=== PATIENT | female | born 1955 | race Caucasian/White ===

== ENCOUNTER → 2016-04-13 | Outpatient (CLI) | payer MEDICARE ==
[2016-04-13 14:16] LABS: ALANINE AMINOTRANSFERASE 25 U/L (9-52); ALKALINE PHOSPHATASE 86 U/L (38-126); ASPARTATE AMINO TRANSFERASE 22 U/L (14-36); BILIRUBIN,TOTAL 0.6 mg/dL (0.2-1.3); CHOLESTEROL 278.84 mg/dL (0-200); Direct HDL 69 mg/dL (>40); TOTAL PROTEIN 6.4 g/dL (6.3-8.2); TRIGLYCERIDES 110 mg/dL (<150)
[2016-04-13 14:27] LABS: DIRECT LDL 174 mg/dL (<100)
[2016-04-14 08:17] LABS: APPEARANCE,URINE CLEAR; BILIRUBIN,URINE NEGATIVE (NEGATIVE); GLUCOSE, URINE NEGATIVE (NEGATIVE); KETONES,URINE NEGATIVE (NEGATIVE); LEUKOCYTE ESTERASE,URINE MODERATE (NEGATIVE); NITRITE,URINE NEGATIVE (NEGATIVE); PROTEIN,URINE NEGATIVE (NEGATIVE); URINE SPECIFIC GRAVITY 1.017; UROBILINOGEN,URINE NEGATIVE mg/dL (<2.0)
== END ==
LOC: OD 12:35
DX: K76.89 Other specified diseases of liver (principal); Z79.899 Other long term (current) drug therapy
CPT/HCPCS: 36415; 80061; 80076; 81001; 83036

== ENCOUNTER → 2016-05-11 | Outpatient (CLI) | payer MEDICARE | LOC: OD 08:19 | DX: R06.02 Shortness of breath (principal) | CPT/HCPCS: 71020 ==

== ENCOUNTER → 2016-05-11 | Outpatient (CLI) | payer MEDICARE ==
[2016-05-11 09:26] LABS: ABSOLUTE EOSINOPHILS # (AUTO) 0.5 10^3/uL (0.0-0.6); ABSOLUTE LYMPHOCYTES (AUTO) 2.7 10^3/uL (0.5-4.7); ABSOLUTE MONOCYTES (AUTO) 0.7 10^3/uL (0.1-1.4); BASOPHILS % (AUTO) 0.7 % (0-2); EOSINOPHILS % (AUTO) 7.8 % (0-6); HEMATOCRIT 35.4 % (36.0-47.0); HEMOGLOBIN 11.9 g/dL (12.0-15.5); HGB HCT DIFFERENCE 0.3; LYMPHOCYTES % (AUTO) 38.4 % (13-45); MEAN CORPUSCULAR HEMOGLOBIN 30.5 pg (27.0-33.4); MEAN CORPUSCULAR HGB CONC 33.6 g/dL (32.0-36.0); MEAN CORPUSCULAR VOLUME 91 fl (80-97); RED BLOOD COUNT 3.91 10^6/uL (3.72-5.28); RED CELL DISTRIBUTION WIDTH 14.4 % (11.5-14.0); SEGMENTED NEUTROPHILS % (AUTO) 43.1 % (42-78)
[2016-05-11 09:29] LABS: PROTHROMBIN TIME 12.7 SEC (11.4-15.4)
[2016-05-11 09:30] LABS: PARTIAL THROMBOPLASTIN TIME 21.7 SEC (23.5-35.8)
== END ==
LOC: OD 07:42
DX: T14.8 Other injury of unspecified body region (principal); X58.XXXA Exposure to other specified factors, initial encounter; Y93.9 Activity, unspecified; Y92.9 Unspecified place or not applicable
CPT/HCPCS: 36415; 85025; 85610; 85730

== ENCOUNTER → 2016-08-06 | Outpatient (CLI) | payer MEDICARE, OTHER | LOC: RAD 09:59 | PROVIDERS: ATTEND Student in an Organized Health Care Education/Training Program | DX: M79.9 Soft tissue disorder, unspecified (principal) | CPT/HCPCS: 76882 ==

== ENCOUNTER → 2016-10-28 | Outpatient (CLI) | payer MEDICARE ==
[2016-10-28 10:40] LABS: ABSOLUTE BASOPHILS # (AUTO) 0.1 10^3/uL (0.0-0.2); ABSOLUTE EOSINOPHILS # (AUTO) 0.4 10^3/uL (0.0-0.6); ABSOLUTE MONOCYTES (AUTO) 0.6 10^3/uL (0.1-1.4); ABSOLUTE NEUT (AUTO) 2.5 10^3/uL (1.7-8.2); EOSINOPHILS % (AUTO) 6.5 % (0-6); HEMATOCRIT 34.3 % (36.0-47.0); HEMOGLOBIN 11.6 g/dL (12.0-15.5); HGB HCT DIFFERENCE 0.5; LYMPHOCYTES % (AUTO) 44.7 % (13-45); MEAN CORPUSCULAR HEMOGLOBIN 30.3 pg (27.0-33.4); MEAN CORPUSCULAR HGB CONC 33.9 g/dL (32.0-36.0); MEAN CORPUSCULAR VOLUME 89 fl (80-97); MONOCYTES % (AUTO) 9.4 % (3-13); RED BLOOD COUNT 3.84 10^6/uL (3.72-5.28); RED CELL DISTRIBUTION WIDTH 13.8 % (11.5-14.0); SEGMENTED NEUTROPHILS % (AUTO) 38.4 % (42-78); WHITE BLOOD COUNT 6.6 10^3/uL (4.0-10.5)
[2016-10-28 10:44] LABS: APPEARANCE,URINE SLIGHTLY-CLOUDY; BILIRUBIN,URINE NEGATIVE (NEGATIVE); GLUCOSE, URINE NEGATIVE (NEGATIVE); KETONES,URINE NEGATIVE (NEGATIVE); LEUKOCYTE ESTERASE,URINE LARGE (NEGATIVE); NITRITE,URINE NEGATIVE (NEGATIVE); PROTEIN,URINE NEGATIVE (NEGATIVE); URINE SPECIFIC GRAVITY 1.011; UROBILINOGEN,URINE NEGATIVE mg/dL (<2.0)
[2016-10-28 10:58] LABS: ANION GAP 8 (5-19); BLOOD UREA NITROGEN 14 mg/dL (7-20); CARBON DIOXIDE 28 mmol/L (22-30); CHLORIDE 101 mmol/L (98-107); CREATININE RESULT 0.75 mg/dL (0.52-1.25); GLUCOSE 84 mg/dL (75-110); POTASSIUM 4.8 mmol/L (3.6-5.0); SODIUM 137.2 mmol/L (137-145)
--- NOTE | 2016-10-28 11:00 | RADIOLOGY REPORT (SQ) ---
EXAM DESCRIPTION: CHEST PA/LATERAL COMPLETED DATE/TIME: 10/28/2016 10:28 am REASON FOR STUDY: PRE OP COMPARISON: 05/11/2016 EXAM PARAMETERS: NUMBER OF VIEWS: two views TECHNIQUE: Digital Frontal and Lateral radiographic views of the chest acquired. RADIATION DOSE: NA LIMITATIONS: none FINDINGS: LUNGS AND PLEURA: No opacities, masses or pneumothorax. No pleural effusion. MEDIASTINUM AND HILAR STRUCTURES: No masses or contour abnormalities. HEART AND VASCULAR STRUCTURES: Heart normal size. No evidence for failure. BONES: No acute findings. HARDWARE: None in the chest. OTHER: No other significant finding. IMPRESSION: NO SIGNIFICANT RADIOGRAPHIC FINDING IN THE CHEST. TECHNICAL DOCUMENTATION: JOB ID: [id number] [employer]- All Rights Reserved
--- NOTE | 2016-10-28 13:35 | EKG REPORT ---
SEVERITY:- NORMAL ECG - SINUS RHYTHM : Confirmed by: Gallo Tadeo MD 28-Oct-2016 13:34:32
== END ==
LOC: OD 09:20
PROVIDERS: ATTEND Orthopaedic Surgery
DX: Z01.810 Encounter for preprocedural cardiovascular examination (principal); Z01.812 Encounter for preprocedural laboratory examination; Z01.818 Encounter for other preprocedural examination
CPT/HCPCS: 36415; 71020; 80048; 81001; 85025; 93005; 93010

== ENCOUNTER 2016-11-18 13:56 | Emergency (ER) | payer MEDICARE ==
[2016-11-18 14:17] VITALS: BP 140/55
[2016-11-18] MEDS ORDERED: ONDANSETRON 4 MG TAB.RAPDIS PO ONE (14:48)
[2016-11-18] MEDS ORDERED: PENICILLIN V POTASSIUM 500 MG TABLET PO ONE (14:48)
[2016-11-18] MEDS ORDERED: IBUPROFEN 600 MG TABLET PO ONE (14:48)
--- NOTE | 2016-11-18 14:53 | ER Document Report ---
ED Oral Problem - General Chief Complaint: Abdominal Pain Stated Complaint: TOOTH PAIN Time Seen by Provider: 11/18/16 14:42 Notes: The patient is a 61-year-old female who presents with 2 days of front lower dental pain. When she is having the pain, she is having bilateral flank pain and nausea. Patient denies vomiting, abdominal pain, fevers, diarrhea, constipation, hematuria, dysuria, chest pain or shortness of breath. TRAVEL OUTSIDE OF THE [place] IN LAST 30 DAYS: No - Related Data Allergies/Adverse Reactions: Coconut * [Coconut] Allergy (Mild, Verified 08/09/15 10:24) Rash Past Medical History - General Information source: Patient - Social History Smoking Status: Never Smoker Chew tobacco use (# tins/day): No Frequency of alcohol use: None Drug Abuse: None Family History: Reviewed & Not Pertinent, Other - adopted does not know family history Patient has suicidal ideation: No Patient has homicidal ideation: No - Past Medical History Cardiac Medical History: Pulmonary Medical History: Neurological Medical History: Reports: Hx Migraine Renal/ Medical History: Reports: Hx Ectopic . Denies: Hx Peritoneal Dialysis GI Medical History: Reports: Hx Gastroesophageal Reflux Disease Musculoskeltal Medical History: Reports Hx Arthritis, Reports Hx Musculoskeletal Deformity, Reports Hx Musculoskeletal Trauma Psychiatric Medical History: Reports: Hx Anxiety, Hx Depression, Hx Obsessive Compulsive Disorder Traumatic Medical History: Reports: Hx Spine Fracture Infectious Medical History: Past Surgical History: Reports: Hx Cardiac Surgery - ablation, Hx Cholecystectomy, Hx Orthopedic Surgery - hip, femur, knee, Hx Tubal Ligation - Immunizations Immunizations up to date: Yes Hx Diphtheria, Pertussis, Tetanus Vaccination: Yes Review of Systems - Review of Systems Notes: REVIEW OF SYSTEMS: CONSTITUTIONAL: -fevers, -chills EENT: -eye pain, -difficulty swallowing, -nasal congestion, +dental pain CARDIOVASCULAR:-chest pain, -syncope. RESPIRATORY: -cough, -SOB GASTROINTESTINAL: -abdominal pain, +nausea, -vomiting, -diarrhea GENITOURINARY: -dysuria, -hematuria MUSCULOSKELETAL: +B/L flank pain, -neck pain SKIN: -rash or skin lesions. HEMATOLOGIC: -easy bruising or bleeding. LYMPHATIC: -swollen, enlarged glands. NEUROLOGICAL: -altered mental status or loss of consciousness, -headache, - neurologic symptoms PSYCHIATRIC: -anxiety, -depression. ALL OTHER SYSTEMS REVIEWED AND NEGATIVE. Physical Exam - Vital signs Vitals: Temp Pulse Resp BP Pulse Ox 98.6 F 92 18 140/55 H 98 11/18/16 14:12 11/18/16 14:12 11/18/16 14:12 11/18/16 14:12 11/18/16 14:12 - Notes Notes: PHYSICAL EXAMINATION: GENERAL: Well-appearing, well-nourished and in no acute distress. HEAD: Atraumatic, normocephalic. EYES: Pupils equal round and reactive to light, extraocular movements intact, sclera anicteric, conjunctiva are normal. ENT: Poor dentition. No abscess seen. nares patent, oropharynx clear without exudates. Moist mucous membranes. NECK: Normal range of motion, supple without lymphadenopathy LUNGS: Breath sounds clear to auscultation bilaterally and equal. No wheezes rales or rhonchi. HEART: Regular rate and rhythm without murmurs ABDOMEN: Soft, nontender, normoactive bowel sounds. No guarding, no rebound. No masses appreciated. EXTREMITIES: Normal range of motion, no pitting or edema. No cyanosis. NEUROLOGICAL: Cranial nerves grossly intact. Normal speech, normal gait. Normal sensory and motor exams. PSYCH: Normal mood, normal affect. SKIN: Warm, Dry, normal turgor, no rashes or lesions noted. Course - Re-evaluation Re-evalutation: Patient appears well. Gave her a list of dental clinics in [facility] to take care of his teeth. Will begin penicillin. No evidence of pyelonephritis on urinalysis. Abdomen is completely soft and nontender. Will discharge patient with return precautions. - Vital Signs Vital signs: Temp Pulse Resp BP Pulse Ox 98.6 F 92 18 140/55 H 98 11/18/16 14:12 11/18/16 14:12 11/18/16 14:12 11/18/16 14:12 11/18/16 14:12 - Laboratory Laboratory results interpreted by ri: 11/18/16 15:14 Urine Protein 30 H Urine Bilirubin MODERATE H Ur Leukocyte Esterase TRACE H Urine Ascorbic Acid 40 H Discharge - Discharge Clinical Impression: Dental caries Condition: Stable Disposition: HOME, SELF-CARE Additional Instructions: TOOTHACHE: Your pain is due to dental decay. The tooth must be repaired in order for you to feel better. You will, therefore, be referred to a dentist. We do not have dentists on the staff at [facility]. Severe swelling or drainage around a tooth usually means a dental abscess. This also requires evaluation and treatment by the dentist, but antibiotics may be prescribed while awaiting dental treatment. You should be rechecked immediately if you develop major swelling of the face, increasing pain, a lump in the jaw or gums, headache, difficulty swallowing, or fever. PENICILLIN V K: You have been given a prescription for Penicillin VK. Your physician has determined that this is the best antibiotic for your condition. Pen VK can be taken with meals, however more of the antibiotic gets into the bloodstream if it's taken on an empty stomach. Penicillin usually has no side effects. However, allergy to penicillins is common. If you have had an allergic reaction to any drug of the penicillin family, you should never take any other penicillin. Notify your doctor at once if you develop hives, itching, swelling, faintness, or shortness of breath. FOLLOW-UP CARE: You have been referred for follow-up care to the dentists listed below. Call the dentists office for an appointment as you were instructed or within the next two days. If you experience worsening or a significant change in your symptoms, notify the physician immediately or return to the Emergency Department at any time for re-evaluation. [facility] [address] [place], [place] Wednesday mornings, by appointment [facility] [address] [place] [address] [facility] [address] [facility] [address] [facility] [address] [facility] [email or web address] [facility] [address] [place] [address] Wednesday- 8:00am to 5:00 pm Will see patients from other [facility]. Charges based on income and family size and accepts Medicare, Medicaid, and Insurances Will pull molars [facility] [address] Hours of Operation 8:00 am - 4:30 pm weekdays The following dental offices accept Medicaid: [facility] Dr. [address] Dr. [address] Dr. [place] Dr. Larose Yobany Gonsales, [place], and Abel oral surgery Dr. Bradley ([place]) Dr. Ashton ([place]) [facility] Drs. Henning ([place]) Dr. Butler ([place]) [facility] Dr. Torres ([place]) Drs. Paniagua and ([place]) Medicaid Care Line Prescriptions: Penicillin V Potassium [Penicillin Vk 500 mg Tablet] 500 mg PO TID #21 tablet
[2016-11-18 15:45] LABS: APPEARANCE,URINE CLEAR; BILIRUBIN,URINE MODERATE (NEGATIVE); GLUCOSE, URINE NEGATIVE (NEGATIVE)
[2016-11-18 15:46] LABS: KETONES,URINE NEGATIVE (NEGATIVE); LEUKOCYTE ESTERASE,URINE TRACE (NEGATIVE); NITRITE,URINE NEGATIVE (NEGATIVE); PROTEIN,URINE 30 mg/dL (NEGATIVE); UROBILINOGEN,URINE NEGATIVE mg/dL (<2.0)
[2016-11-18 15:56] LABS: BACTERIA,URINE TRACE /HPF
== END 2016-11-18 16:15 | disposition home or self-care (01) ==
LOC: ER 13:56
DX: K02.9 Dental caries, unspecified (principal); K08.89 Other specified disorders of teeth and supporting structures; R10.9 Unspecified abdominal pain; R11.0 Nausea; Z90.49 Acquired absence of other specified parts of digestive tract; Z87.59 Personal history of other complications of pregnancy, childbirth and the puerperium; Z87.19 Personal history of other diseases of the digestive system; Z91.018 Allergy to other foods
CPT/HCPCS: 99284; 81001; A9270 ×3; S0119

== ENCOUNTER → 2017-01-25 | Outpatient (CLI) | payer MEDICARE ==
--- NOTE | 2017-01-25 12:17 | WOMENS IMAGING REPORT ---
EXAM DESCRIPTION: 3D SCREENING MAMMO BILAT COMPLETED DATE/TIME: 01/25/2017 11:38 am REASON FOR STUDY: ROUTINE SCREENING; Z12.31 Z12.31 ENCNTR SCREEN MAMMOGRAM FOR MALIGNANT NEOPLASM O F TANA COMPARISON: 2013 TECHNIQUE: Standard craniocaudal and mediolateral oblique views of each breast recorded using digita l acquisition and breast tomosynthesis. LIMITATIONS: Positioning left. FINDINGS: No masses, calcifications or architectural distortion. No areas of suspicion. Read with the assistance of CAD. .[facility] - R2 Cenova Version 1.3 .[facility] Imaging - R2 Cenova Version 1.3 .[facility] - R2 Cenova Version 2.4 .[facility] - R2 Cenova Version 2.4 .[facility] - R2 Birth Certificate Clerk Version 9.2 IMPRESSION: NORMAL MAMMOGRAM. BIRADS 1. BREAST DENSITY: b. There are scattered areas of fibroglandular density. BIRAD: 1 NEGATIVE RECOMMENDATION: ROUTINE SCREENING COMMENT: The patient has been notified of the results by letter per SA requirements. Additional no tification policies are in place for contacting patient with suspicious or incomplete findings. Quality ID #[id number]: The [employer] recommends an annual screening mammogram for women aged 40 years or over. This facility utilizes a reminder system to ensure that all patients receive reminder letters, and/or direct phone calls for appointments. This includes reminders for routine scr eening mammograms, diagnostic mammograms, or other Breast Imaging Interventions when appropriate. Th is patient will be placed in the appropriate reminder system. The [employer] (ACR) has developed recommendations for screening MRI of the breast s in certain patient populations, to be used in conjunction with mammography. Breast MRI surveillanc e may be appropriate for women with more than 20% lifetime risk of developing breast cancer as deter mined by genetic testing, significant family history of the disease, or history of mantle radiation f or Hodgkins Disease. ACR Practice Guidelines 2008. DBT Technology DBT is a type of tomographic mammography. With conventional mammography, overlapping breast tissue ma y make lesions difficult to detect, even with good compression. DBT uses an x-ray tube that rotates a round the breast, taking images at different angles. These images are then combined to create thin sl ices of the breast that the radiologist can view as a 3D reconstruction. The [employer] unit can perform full-field digital mammograms (2D imaging); or DBT (3D imaging); or both, in a combination mode that quickly performs both the mammogram and the tomosynthesis scan while the breast is still compressed. PQRS 6045F: Fluoroscopic imaging is not utilized for breast tomosynthesis. TECHNICAL DOCUMENTATION: FINDING NUMBER: (1) ASSESSMENT: (1) JOB ID: [id number] [employer]- All Rights Reserved
== END ==
LOC: WI 10:45
PROVIDERS: ATTEND Student in an Organized Health Care Education/Training Program
DX: Z12.31 Encounter for screening mammogram for malignant neoplasm of breast (principal)
CPT/HCPCS: 77063; G0202; 77067

== ENCOUNTER 2017-02-10 22:04 | Emergency (ER) | payer MEDICARE ==
[2017-02-10 22:10] VITALS: BP 152/57
--- NOTE | 2017-02-10 23:30 | RADIOLOGY REPORT (SQ) ---
EXAM DESCRIPTION: KUB/ABDOMEN (SINGLE VIEW) COMPLETED DATE/TIME: 02/10/2017 11:13 pm REASON FOR STUDY: no bowel movement for 1 week COMPARISON: None. NUMBER OF VIEWS: One view. TECHNIQUE: Supine radiographic image of the abdomen acquired. LIMITATIONS: None. FINDINGS: BOWEL GAS PATTERN: No evidence for a bowel obstruction is seen. There is a moderate amoun t of gas and fecal material throughout the colon CALCIFICATIONS: No suspicious calcifications. SOFT TISSUES: No gross mass or suggestion of organomegaly. HARDWARE: Surgical clips are identified in the right upper quadrant. BONES: No acute fracture. No worrisome bone lesions. Degenerative changes are identified in the left hip articulation. OTHER: Patient is status post right hip pinning. IMPRESSION: NO RADIOGRAPHIC EVIDENCE FOR ACUTE ABDOMINAL DISEASE. TECHNICAL DOCUMENTATION: JOB ID: [id number]- All Rights Reserved
[2017-02-11] MEDS ORDERED: MINERAL OIL 30 ML UDCUP PR ONE (00:14)
[2017-02-11] MEDS ORDERED: LACTULOSE SYRUP 20 GM/30 ML UDCUP PO ONE (00:15)
[2017-02-11 02:25] LABS: ABSOLUTE BASOPHILS # (AUTO) 0.1 10^3/uL (0.0-0.2); ABSOLUTE EOSINOPHILS # (AUTO) 0.1 10^3/uL (0.0-0.6); ABSOLUTE LYMPHOCYTES (AUTO) 3.9 10^3/uL (0.5-4.7); BASOPHILS % (AUTO) 0.7 % (0-2); EOSINOPHILS % (AUTO) 0.7 % (0-6); HEMOGLOBIN 12.8 g/dL (12.0-15.5); HGB HCT DIFFERENCE 0.4; LYMPHOCYTES % (AUTO) 25.9 % (13-45); MEAN CORPUSCULAR HEMOGLOBIN 28.7 pg (27.0-33.4); MEAN CORPUSCULAR HGB CONC 33.6 g/dL (32.0-36.0); MEAN CORPUSCULAR VOLUME 86 fl (80-97); MONOCYTES % (AUTO) 6.7 % (3-13); RED BLOOD COUNT 4.45 10^6/uL (3.72-5.28); RED CELL DISTRIBUTION WIDTH 14.2 % (11.5-14.0); WHITE BLOOD COUNT 15.2 10^3/uL (4.0-10.5)
--- NOTE | 2017-02-11 02:34 | ER Document Report ---
ED General - General Chief Complaint: Constipation Stated Complaint: CONSTIPATED Time Seen by Provider: 02/11/17 00:13 Notes: Patient is a 61-year-old female with a past medical history of chronic constipation, prior cholecystectomy who presents with 1 month of inability to have a bowel movement. Patient states that she has IBS with chronic constipation and that it is not unusual for her to go weeks without having a bowel movement. She notes that she has been trying herbal teas as well as fiber supplements without relief of her constipation. Nothing seems to otherwise worsen her symptoms. She denies any associated abdominal pain, vomiting, fever, dysuria, and has continued to pass flatus. Notes that she has been able to tolerate oral intake. She has not seen her primary doctor regarding today's concerns. TRAVEL OUTSIDE OF THE [place] IN LAST 30 DAYS: No - Related Data Allergies/Adverse Reactions: Coconut * [Coconut] Allergy (Mild, Verified 02/10/17 22:06) Rash Past Medical History - General Information source: Patient - Social History Smoking Status: Never Smoker Chew tobacco use (# tins/day): No Frequency of alcohol use: None Drug Abuse: None Lives with: Guardian Family History: Reviewed & Not Pertinent, Other - adopted does not know family history Patient has suicidal ideation: No Patient has homicidal ideation: No - Past Medical History Cardiac Medical History: Pulmonary Medical History: Neurological Medical History: Reports: Hx Migraine Renal/ Medical History: Reports: Hx Ectopic . Denies: Hx Peritoneal Dialysis GI Medical History: Reports: Hx Gastroesophageal Reflux Disease Musculoskeltal Medical History: Reports Hx Arthritis, Reports Hx Musculoskeletal Deformity, Reports Hx Musculoskeletal Trauma Psychiatric Medical History: Reports: Hx Anxiety, Hx Depression, Hx Obsessive Compulsive Disorder Traumatic Medical History: Reports: Hx Spine Fracture Infectious Medical History: Past Surgical History: Reports: Hx Cardiac Surgery - ablation, Hx Cholecystectomy, Hx Orthopedic Surgery - hip, femur, knee, Hx Tubal Ligation - Immunizations Immunizations up to date: Yes Hx Diphtheria, Pertussis, Tetanus Vaccination: Yes Review of Systems - Review of Systems Notes: Constitutional: Negative for fever. HENT: Negative for sore throat. Eyes: Negative for visual changes. Cardiovascular: Negative for chest pain. Respiratory: Negative for shortness of breath. Gastrointestinal: Negative for abdominal pain, vomiting or diarrhea. Positive for constipation Genitourinary: Negative for dysuria. Musculoskeletal: Negative for back pain. Skin: Negative for rash. Neurological: Negative for headaches, weakness or numbness. 10 point ROS negative except as marked above and in HPI. Physical Exam - Vital signs Vitals: Temp Pulse Resp BP Pulse Ox 98.5 F 80 18 152/57 H 98 02/10/17 22:06 02/10/17 22:06 02/10/17 22:06 02/10/17 22:06 02/10/17 22:06 Interpretation: Hypertensive Notes: PHYSICAL EXAMINATION: GENERAL: Well-appearing, well-nourished and in no acute distress. HEAD: Atraumatic, normocephalic. EYES: Pupils equal round and reactive to light, extraocular movements intact, sclera anicteric, conjunctiva are normal. ENT: nares patent, oropharynx clear without exudates. Moist mucous membranes. NECK: Normal range of motion, supple without lymphadenopathy LUNGS: Breath sounds clear to auscultation bilaterally and equal. No wheezes rales or rhonchi. HEART: Regular rate and rhythm without murmurs ABDOMEN: Soft, nontender, normoactive bowel sounds. No guarding, no rebound. No masses appreciated. EXTREMITIES: Normal range of motion, no pitting or edema. No cyanosis. NEUROLOGICAL: No focal neurological deficits. Moves all extremities spontaneously and on command. PSYCH: Normal mood, normal affect. SKIN: Warm, Dry, normal turgor, no rashes or lesions noted. Course - Re-evaluation Re-evalutation: 02/11/17 02:32 Patient presents with 1 month of difficulty having bowel movements. She is overall nontoxic appearance, vitals within normal limits, no focal abdominal tenderness on examination. KUB obtained in triage does show market constipation but no evidence of acute obstruction or perforation. An enema and lactulose were attempted without relief of the patient's constipation and she did actually begin to develop some vomiting here in the emergency department although she did not have vomiting prior to presentation. Given onset of vomiting, CT abdomen pelvis will be obtained to further evaluate for possible obstruction 02/11/17 03:45 CT does not demonstrate any evidence of an acute bowel obstruction but does show significant stool burden. As patient has not had significant relief with an enema here in the emergency department as well as attempts at fecal compaction, will place on escalating doses of MiraLAX and recommend ongoing outpatient follow-up. At this time will discharge with return precautions and follow-up recommendations. Verbal discharge instructions given a the bedside and opportunity for questions given. Medication warnings reviewed. Patient is in agreement with this plan and has verbalized understanding of return precautions and the need for primary care follow-up in the next 24-72 hours. - Vital Signs Vital signs: Temp Pulse Resp BP Pulse Ox 98.5 F 80 18 152/57 H 98 02/10/17 22:06 02/10/17 22:06 02/10/17 22:06 02/10/17 22:06 02/10/17 22:06 - Laboratory Result Diagrams: 02/11/17 02:00 02/11/17 02:00 Laboratory results interpreted by me: 02/11/17 02/11/17 02:00 02:00 WBC 15.2 H RDW 14.2 H Absolute Neutrophils 10.0 H Sodium 134.6 L Glucose 127 H - Diagnostic Test Radiology reviewed: Image reviewed, Reports reviewed Radiology results interpreted by me: 02/11/17 02:33 KUB: Constipation, no obstruction or perforation Discharge - Discharge Clinical Impression: Constipation Qualifiers: Constipation type: unspecified constipation type Qualified Code(s): K59.00 - Constipation, unspecified Condition: Good Disposition: HOME, SELF-CARE Additional Instructions: Your CT scan does not show any concerning findings but does show significant constipation. For your constipation: You should take 8 caps of MiraLAX and placed in 1 liter of Gatorade. Drink one half of the solution and wait 4 hours. If you do not have a bowel movement take the remaining half of the solution. You may repeat this as needed for complete cleanout. After you finish becoming cleaned out, I recommend that you take 1-2 capfuls of MiraLAX daily to maintain appropriate regulation of your bowel movements. Return if you develop persistent vomiting, continue to be unable to have bowel movement, develop a fever, abdominal pain, or any other symptoms that are worrisome to you. Referrals: RAUL GUILLEN, [Primary Care Provider] - Follow up as needed
[2017-02-11 02:38] LABS: ALANINE AMINOTRANSFERASE 34 U/L (9-52); ALBUMIN 4.5 g/dL (3.5-5.0); ALKALINE PHOSPHATASE 77 U/L (38-126); ANION GAP 14 (5-19); ASPARTATE AMINO TRANSFERASE 28 U/L (14-36); BILIRUBIN,DIRECT 0.3 mg/dL (0.0-0.4); BILIRUBIN,TOTAL 0.9 mg/dL (0.2-1.3); BLOOD UREA NITROGEN 8 mg/dL (7-20); CALCIUM 9.1 mg/dL (8.4-10.2); CARBON DIOXIDE 23 mmol/L (22-30); CHLORIDE 98 mmol/L (98-107); GLUCOSE 127 mg/dL (75-110); LIPASE 148.9 U/L (23-300); POTASSIUM 3.7 mmol/L (3.6-5.0); SODIUM 134.6 mmol/L (137-145); TOTAL PROTEIN 7.1 g/dL (6.3-8.2)
--- NOTE | 2017-02-11 03:32 | RADIOLOGY REPORT (SQ) ---
EXAM DESCRIPTION: CT ABDOMEN AND PELVIS WITH CONTRAST CLINICAL HISTORY: Bowel obstruction COMPARISON: None Available. TECHNIQUE: CT of the abdomen and pelvis are performed during IV bolus administration of 69.2 mL of Isovue-370. Portal venous and delayed phase images obtained. DLP: 1119.64 mGycm FINDINGS: Abdomen: The liver has normal size and density. No biliary dilatation. There is a 2.5 x 1.1 cm nonenhancing hypodensity in the right hepatic lobe with minimal peripheral calcification likely representing a cyst. No follow-up required. Prior cholecystectomy. The spleen, pancreas, and adrenal glands are unremarkable. The kidneys have normal size and contour without evidence of solid mass or hydronephrosis. Aortoiliac atherosclerosis. IVC is unremarkable. The portal vein patent. The proximal visceral and renal arteries are patent. No free intraperitoneal air. Small hiatal hernia. Pelvis: Possible prior hysterectomy. Urinary bladder is unremarkable. No free pelvic fluid or lymphadenopathy. No dilated loops of large or small bowel. Large amount of stool throughout the colon. No evidence of appendicitis. The visualized lung bases are clear. Postoperative changes of the hips bilaterally. Intramedullary delmar and dynamic screw fixation of the right hip. Degenerative change of the spine. IMPRESSION: 1. No acute inflammatory or obstructive abnormality identified. 2. Large amount stool throughout the colon. Correlation for history of constipation and fecal impaction. This exam was performed according to our departmental dose-optimization program, which includes automated exposure control, adjustment of the mA and/or kV according to patient size and/or use of iterative reconstruction technique.
== END 2017-02-11 04:09 | disposition home or self-care (01) ==
LOC: ER 22:04
DX: K59.00 Constipation, unspecified (principal); Z90.49 Acquired absence of other specified parts of digestive tract; K58.9 Irritable bowel syndrome, unspecified
CPT/HCPCS: 99284; 36415; 83690; 85025; 80053; 74000; 74177; A9270; J3490

== ENCOUNTER 2018-05-04 09:02 | Inpatient (IN) | payer MEDICARE ==
--- NOTE | 2018-05-04 09:33 | ER Document Report ---
ED Medical Screen (RME) - General Chief Complaint: Cough Stated Complaint: COUGH Time Seen by Provider: 05/04/18 09:27 Primary Care Provider: RAUL GUILLEN DO [Primary Care Provider] - Follow up as needed Notes: Patient is a 62-year-old female, poor historian that presents to the emergency department for chief complaint of cough for 2 weeks. Reports initially being seen by her primary care placed on antibiotic she does not remember which one, is not sure she was placed on any other medications. Reports subjective fever at home, denies chest pain, nausea or vomiting. ROS: Other than noted above, the 12 point review of systems was reviewed with the patient and were negative, all pertinent findings are included in the HPI. PHYSICAL EXAMINATION: Vital signs reviewed. GENERAL: Elderly female, no acute distress HEAD: Atraumatic, normocephalic. EYES: Pupils equal round extraocular movements intact, conjunctiva are normal. ENT: Nares patent NECK: Normal range of motion CV: Heart rate tachycardic, regular rhythm LUNGS: No respiratory distress, wet cough on exam Musculoskeletal: Normal range of motion NEUROLOGICAL: Normal speech PSYCH: Normal mood, normal affect. MDM: Patient seen and examined for rapid initial assessment. Vital signs reviewed. A comprehensive ED assessment and evaluation of the patient, analysis of test results and completion of the medical decision making process will be conducted by additional ED providers. *Note is created using voice recognition software and may contain spelling, syntax or grammatical errors. TRAVEL OUTSIDE OF THE [place] IN LAST 30 DAYS: No - Related Data Allergies/Adverse Reactions: Coconut * [Coconut] Allergy (Mild, Verified 05/04/18 09:25) Rash No Known Food Allergies Allergy (Verified 05/04/18 09:25) Past Medical History - Past Medical History Cardiac Medical History: Pulmonary Medical History: Neurological Medical History: Reports: Hx Migraine Renal/ Medical History: Reports: Hx Ectopic . Denies: Hx Peritoneal Dialysis GI Medical History: Reports: Hx Gastroesophageal Reflux Disease Musculoskeltal Medical History: Reports Hx Arthritis, Reports Hx Musculoskeletal Deformity, Reports Hx Musculoskeletal Trauma Psychiatric Medical History: Reports: Hx Anxiety, Hx Depression, Hx Obsessive Compulsive Disorder Traumatic Medical History: Reports: Hx Spine Fracture Infectious Medical History: Past Surgical History: Reports: Hx Cardiac Surgery - ablation, Hx Cholecystectomy, Hx Orthopedic Surgery - hip, femur, knee, Hx Tubal Ligation - Immunizations Immunizations up to date: Yes Hx Diphtheria, Pertussis, Tetanus Vaccination: Yes Physical Exam - Vital signs Vitals: Temp Pulse Resp BP Pulse Ox 98.3 F 109 H 20 147/75 H 99 05/04/18 09:09 05/04/18 09:09 05/04/18 09:09 05/04/18 09:09 05/04/18 09:09 Course - Vital Signs Vital signs: Temp Pulse Resp BP Pulse Ox 98.3 F 109 H 20 147/75 H 99 05/04/18 09:09 05/04/18 09:09 05/04/18 09:09 05/04/18 09:09 05/04/18 09:09 Doctor's Discharge - Discharge Referrals: RAUL GUILLEN DO [Primary Care Provider] - Follow up as needed
[2018-05-04] MEDS ORDERED: IPRATROPIUM/ALBUTEROL 0.5-2.5 MG/3 ML AMPUL NEB ONE (09:34)
[2018-05-04 10:10] LABS: ABSOLUTE LYMPHOCYTES (AUTO) 1.5 10^3/uL (0.5-4.7); ABSOLUTE MONOCYTES (AUTO) 0.8 10^3/uL (0.1-1.4); ABSOLUTE NEUT (AUTO) 9.5 10^3/uL (1.7-8.2); BASOPHILS % (AUTO) 0.4 % (0-2); EOSINOPHILS % (AUTO) 0.3 % (0-6); HEMATOCRIT 33.6 % (36.0-47.0); HEMOGLOBIN 11.8 g/dL (12.0-15.5); LYMPHOCYTES % (AUTO) 12.3 % (13-45); MEAN CORPUSCULAR HEMOGLOBIN 29.5 pg (27.0-33.4); MEAN CORPUSCULAR VOLUME 84 fl (80-97); MONOCYTES % (AUTO) 6.7 % (3-13); PLATELET COUNT 481 10^3/uL (150-450); RED BLOOD COUNT 3.99 10^6/uL (3.72-5.28); SEGMENTED NEUTROPHILS % (AUTO) 80.3 % (42-78); TOTAL CELLS COUNTED % (AUTO) 100 %; WHITE BLOOD COUNT 11.9 10^3/uL (4.0-10.5)
--- NOTE | 2018-05-04 10:42 | RADIOLOGY REPORT (SQ) ---
EXAM DESCRIPTION: CHEST 2 VIEWS COMPLETED DATE/TIME: 05/04/2018 10:04 am REASON FOR STUDY: cough COMPARISON: 06/22/2015, 06/17/2012, 04/08/2011 EXAM PARAMETERS: NUMBER OF VIEWS: two views TECHNIQUE: Digital Frontal and Lateral radiographic views of the chest acquired. RADIATION DOSE: NA LIMITATIONS: none FINDINGS: LUNGS AND PLEURA: No opacities, masses or pneumothorax. No pleural effusion. MEDIASTINUM AND HILAR STRUCTURES: No masses or contour abnormalities. HEART AND VASCULAR STRUCTURES: Heart normal size. No evidence for failure. BONES: Lower cervical fusion hardware HARDWARE: None in the chest. OTHER: No other significant finding. IMPRESSION: NO ACUTE RADIOGRAPHIC FINDING IN THE CHEST. TECHNICAL DOCUMENTATION: JOB ID: [id number] [employer]- All Rights Reserved Reading location - IP/workstation name: [email or web address]
[2018-05-04 11:02] LABS: ALANINE AMINOTRANSFERASE 42 U/L (9-52); ALBUMIN 4.3 g/dL (3.5-5.0); ALKALINE PHOSPHATASE 83 U/L (38-126); ANION GAP 10 (5-19); ASPARTATE AMINO TRANSFERASE 60 U/L (14-36); BILIRUBIN,DIRECT 0.2 mg/dL (0.0-0.4); BILIRUBIN,TOTAL 0.9 mg/dL (0.2-1.3); BLOOD UREA NITROGEN 6 mg/dL (7-20); CALCIUM 8.2 mg/dL (8.4-10.2); CARBON DIOXIDE 24 mmol/L (22-30); CHLORIDE 84 mmol/L (98-107); GLUCOSE 135 mg/dL (75-110); POTASSIUM 3.7 mmol/L (3.6-5.0); TOTAL PROTEIN 6.6 g/dL (6.3-8.2)
[2018-05-04 11:18] LABS: SODIUM 118.4 mmol/L (137-145)
[2018-05-04] MEDS ORDERED: NORMAL SALINE 1000 ML 1,000 ML IV ONE ×2 (11:22→19:41)
--- NOTE | 2018-05-04 11:30 | ER Document Report ---
ED General - General Chief Complaint: Cough Stated Complaint: COUGH Time Seen by Provider: 05/04/18 09:27 Primary Care Provider: RAUL GUILLEN DO [Primary Care Provider] - Follow up as needed TRAVEL OUTSIDE OF THE [place] IN LAST 30 DAYS: No - HPI Notes: Patient is a 62-year-old female that presents to the emergency department for chief complaint of cough. Patient is a poor historian which limits HPI. She reports a dry cough for the last few weeks. She is currently on Augmentin from her primary care provider. There is a caregiver at bedside who states when he found her today she was coughing which is why he brought her to the emergency room. Patient does endorse drinking lots of water and states she has had at least a case and a half of bottle of water over the last 2-3 days. She denies any fevers or chills. She denies nausea and vomiting. Past Medical History: Anxiety, depression Past Surgical History: Reviewed in chart Social History: Reviewed in chart Family History: Reviewed and noncontributory for presenting illness Allergies: Reviewed, see documented allergy list. REVIEW OF SYSTEMS: CONSTITUTIONAL : No fever No chills No diaphoresis No recent illness EENT: No vision changes congestion No sore throat CARDIOVASCULAR: No chest pain No palpitations RESPIRATORY: No shortness of breath cough No difficulty breathing GASTROINTESTINAL: No abdominal pain No nausea No vomiting No diarrhea GENITOURINARY: No dysuria No hematuria No difficulty urinating MUSCULOSKELETAL: No back pain No leg pain No arm pain SKIN: No rashes No lesions LYMPHATIC: No swollen, enlarged glands. NEUROLOGICAL: No lightheadedness No headache No weakness No paresthesias PSYCHIATRIC: No anxiety No depression PHYSICAL EXAMINATION: Vital signs reviewed, nursing noted reviewed. GENERAL: Well-appearing, well-nourished and in no acute distress. HEAD: Atraumatic, normocephalic. EYES: Eyes appear normal, extraocular movements intact, sclera anicteric, conjunctiva are normal. ENT: nares patent, oropharynx clear without exudates. Moist mucous membranes. NECK: Normal range of motion, supple without lymphadenopathy LUNGS: Breath sounds clear to auscultation bilaterally and equal. No wheezes rales or rhonchi. HEART: Tachycardic rate and regular rhythm without murmurs ABDOMEN: Soft, nontender, normoactive bowel sounds. No rebound, guarding, or rigidity. No masses appreciated. EXTREMITIES: Nontender, good range of motion, no pitting or edema. NEUROLOGICAL: No focal neurological deficits. Moves all extremities spontaneously Motor and sensory grossly intact on exam. PSYCH: Normal mood, normal affect. SKIN: Warm, Dry, normal turgor, no rashes or lesions noted on exposed skin - Related Data Allergies/Adverse Reactions: Coconut * [Coconut] Allergy (Mild, Verified 05/04/18 09:25) Rash No Known Food Allergies Allergy (Verified 05/04/18 09:25) Past Medical History - Social History Smoking Status: Never Smoker Chew tobacco use (# tins/day): No Drug Abuse: None Family History: Reviewed & Not Pertinent, Other - adopted does not know family history Patient has suicidal ideation: No Patient has homicidal ideation: No - Past Medical History Cardiac Medical History: Pulmonary Medical History: Neurological Medical History: Reports: Hx Migraine Renal/ Medical History: Reports: Hx Ectopic . Denies: Hx Peritoneal Dialysis GI Medical History: Reports: Hx Gastroesophageal Reflux Disease Musculoskeletal Medical History: Reports Hx Arthritis, Reports Hx Musculoskeletal Deformity, Reports Hx Musculoskeletal Trauma Psychiatric Medical History: Reports: Hx Anxiety, Hx Depression, Hx Obsessive Compulsive Disorder Traumatic Medical History: Reports: Hx Spine Fracture Infectious Medical History: Past Surgical History: Reports: Hx Cardiac Surgery - ablation, Hx Cholecystectomy, Hx Orthopedic Surgery - hip, femur, knee, Hx Tubal Ligation - Immunizations Immunizations up to date: Yes Hx Diphtheria, Pertussis, Tetanus Vaccination: Yes Physical Exam - Vital signs Vitals: Temp Pulse Resp BP Pulse Ox 98.3 F 109 H 20 147/75 H 99 05/04/18 09:09 05/04/18 09:09 05/04/18 09:09 05/04/18 09:09 05/04/18 09:09 Course - Re-evaluation Re-evalutation: 05/04/18 11:34 Vitals reviewed. Nursing notes reviewed. Patient is afebrile and nontoxic in appearance. Chest x-ray shows no acute pneumonia. She does have hyponatremia which may be related to polydipsia is not meeting any sepsis criteria and is currently on antibiotics. Patient at home. She is a poor historian which makes it difficult to determine the etiology of her hyponatremia. Patient will be admitted to the hospital for further management. Case discussed with admitting provider Yumiko Williamson. Patient in agreement with plan of care. Laboratory 05/04/18 05/04/18 05/04/18 09:48 09:48 10:32 WBC 11.9 H RBC 3.99 Hgb 11.8 L Hct 33.6 L MCV 84 MCH 29.5 MCHC 35.0 RDW 13.0 Plt Count 481 H Seg Neutrophils % 80.3 H Lymphocytes % 12.3 L Monocytes % 6.7 Eosinophils % 0.3 Basophils % 0.4 Absolute Neutrophils 9.5 H Absolute Lymphocytes 1.5 Absolute Monocytes 0.8 Absolute Eosinophils 0.0 Absolute Basophils 0.0 Sodium Cancelled Potassium Cancelled Chloride Cancelled Carbon Dioxide Cancelled Anion Gap Cancelled BUN Cancelled Creatinine Cancelled Est GFR ( Amer) Cancelled Est GFR (Non-Af Amer) Cancelled Glucose Cancelled Calcium Cancelled Total Bilirubin Cancelled Direct Bilirubin Cancelled Neonat Total Bilirubin Cancelled Neonat Direct Bilirubin Cancelled Neonat Indirect Bili Cancelled AST Cancelled ALT Cancelled Alkaline Phosphatase Cancelled Troponin I < 0.012 Total Protein Cancelled Albumin Cancelled 05/04/18 10:32 WBC RBC Hgb Hct MCV MCH MCHC RDW Plt Count Seg Neutrophils % Lymphocytes % Monocytes % Eosinophils % Basophils % Absolute Neutrophils Absolute Lymphocytes Absolute Monocytes Absolute Eosinophils Absolute Basophils Sodium 118.4 L* Potassium 3.7 Chloride 84 L Carbon Dioxide 24 Anion Gap 10 BUN 6 L Creatinine 0.55 Est GFR ( Amer) > 60 Est GFR (Non-Af Amer) > 60 Glucose 135 H Calcium 8.2 L Total Bilirubin 0.9 Direct Bilirubin 0.2 Neonat Total Bilirubin Not Reportable Neonat Direct Bilirubin Not Reportable Neonat Indirect Bili Not Reportable AST 60 H ALT 42 Alkaline Phosphatase 83 Troponin I Total Protein 6.6 Albumin 4.3 Chest X-Ray 05/04/18 09:33 IMPRESSION: NO ACUTE RADIOGRAPHIC FINDING IN THE CHEST. - Vital Signs Vital signs: Temp Pulse Resp BP Pulse Ox 98.3 F 109 H 20 147/75 H 99 05/04/18 09:09 05/04/18 09:09 05/04/18 09:09 05/04/18 09:09 05/04/18 09:09 - Laboratory Result Diagrams: 05/04/18 09:48 05/04/18 10:32 Laboratory results interpreted by me: 05/04/18 05/04/18 09:48 10:32 WBC 11.9 H Hgb 11.8 L Hct 33.6 L Plt Count 481 H Seg Neutrophils % 80.3 H Lymphocytes % 12.3 L Absolute Neutrophils 9.5 H Sodium 118.4 L* Chloride 84 L BUN 6 L Glucose 135 H Calcium 8.2 L AST 60 H - EKG Interpretation by Me Additional EKG results interpreted by me: 05/04/18 11:35 Interpreted by myself 1113: Normal sinus rhythm, rate 97, normal axis, no ectopy, borderline prolonged QT, QTc 508 Discharge - Discharge Clinical Impression: Hyponatremia, Cough Condition: Stable Disposition: ADMITTED INPATIENT Admitting Provider: Hospitalist Unit Admitted: Telemetry Referrals: RAUL GUILLEN DO [Primary Care Provider] - Follow up as needed
[2018-05-04] MEDS ORDERED: ACETAMINOPHEN 325 MG TABLET PO PRN (12:34)
[2018-05-04] MEDS ORDERED: ONDANSETRON 4 MG TAB.RAPDIS PO PRN (12:34)
[2018-05-04] MEDS ORDERED: NORMAL SALINE 1000 ML 1,000 ML IV PRN (19:41)
[2018-05-04] MEDS ORDERED: BENZONATATE 100 MG CAPSULE PO PRN (20:04)
--- NOTE | 2018-05-04 20:24 | PDOC H&P ---
History of Present Illness Admission Date/PCP: 05/04/18 12:02 RAUL GUILLEN DO Patient complains of: COUGH. HYPONATREMIA. History of Present Illness: RAFAEL DAS is a 62 year old female who presented to the ED with 1 week of a dry cough. PMH includes anxiety and depression. The patient's caregiver reports that the patient consumed about 1.5 cases of water (36 x 12 oz bottles). CXR negative for PNA. Incidental finding on lab work was hyponatremia (Na 118). Of note, the patient's caregiver reported that the patient was taking fluoxetine. Upon assessment, the patient is awake and comfortable in bed. She occasionally coughs but does not produce mucous. Lungs are clear to auscultation. She is able to tell me her name and that she is at the hospital. The patient is disoriented to time and situation. PERRLA. Able to follow commands. Caregiver states that her current mental state is her baseline. Suspect that the patient's hyponatremia is secondary to fluxetine. Recent polydipsia would not cause dramatic decrease in Na (only consumed approx. 2.4L per day for 5 days). Plan to admit to hospitalist service on MED/TELE floor for hyponatremia treatment. Past Medical History Cardiac Medical History: Pulmonary Medical History: Neurological Medical History: Reports: Migraine GI Medical History: Reports: Gastroesophageal Reflux Disease Musculoskeltal Medical History: Reports: Arthritis Psychiatric Medical History: Reports: Depression Hematology: Past Surgical History Past Surgical History: Reports: Cholecystectomy, Orthopedic Surgery - hip, femur, knee, Tubal Ligation Social History Information Source: POA - Power of Print Buyer Lives with: Family Smoking Status: Never Smoker Frequency of Alcohol Use: None Hx Recreational Drug Use: Yes Drugs: None Hx Prescription Drug Abuse: No - Advance Directive Resuscitation Status: Full Code Family History Family History: Reviewed & Not Pertinent, Other - adopted does not know family history Parental Family History Reviewed: Yes Children Family History Reviewed: Unknown Sibling(s) Family History Reviewed.: Unknown Medication/Allergy Home Medications: Albuterol Sulfate [Proair HFA Inhalation Aerosol 8.5 gm MDI] 2 puff IH Q4HP PRN 05/04/18 Amitriptyline HCl [Elavil 25 mg Tablet] 25 mg PO DAILY 05/04/18 Buspirone HCl [Buspar 15 mg Tablet] 15 mg PO Q12 05/04/18 Citalopram Hydrobromide [Celexa 40 mg Tablet] 40 mg PO DAILY 05/04/18 Clonazepam [Klonopin 1 mg Tablet] 1 mg PO QHS 05/04/18 Hydroxyzine Pamoate [Vistaril 50 mg Capsule] 100 mg PO QHS 05/04/18 Sumatriptan Succinate [Imitrex 50 mg Tablet] 50 mg PO PRN PRN 05/04/18 Temazepam [Restoril 15 mg Capsule] 30 mg PO QHS 05/04/18 Allergies/Adverse Reactions: Coconut * [Coconut] Allergy (Mild, Verified 05/04/18 11:56) Rash Review of Systems All systems: reviewed and no additional remarkable complaints except as stated Physical Exam Vital Signs: Temp Pulse Resp BP Pulse Ox 98.3 F 109 H 18 147/75 H 96 05/04/18 09:09 05/04/18 09:09 05/04/18 18:00 05/04/18 09:09 05/04/18 18:00 Intake & Output 05/03/18 05/04/18 05/05/18 06:59 06:59 06:59 Weight 71.2 kg General appearance: PRESENT: no acute distress, obese Eye exam: PRESENT: conjunctiva pink, PERRLA Mouth exam: PRESENT: moist, tongue midline Teeth exam: PRESENT: poor dentation Neck exam: PRESENT: full ROM Respiratory exam: PRESENT: clear to auscultation daniel, symmetrical, unlabored Cardiovascular exam: PRESENT: +S1, +S2 GI/Abdominal exam: PRESENT: soft. ABSENT: distended, tenderness Rectal exam: PRESENT: deferred Extremities exam: PRESENT: full ROM Musculoskeletal exam: PRESENT: ambulatory - with a walker, full ROM Neurological exam: PRESENT: alert, awake, oriented to person, oriented to place. ABSENT: oriented to time, oriented to situation Psychiatric exam: PRESENT: appropriate affect Skin exam: PRESENT: dry, intact, normal color Results Laboratory Results: 05/04/18 09:48 05/04/18 10:32 05/04/18 05/04/18 05/04/18 09:48 09:48 10:32 WBC 11.9 H RBC 3.99 Hgb 11.8 L Hct 33.6 L MCV 84 MCH 29.5 MCHC 35.0 RDW 13.0 Plt Count 481 H Seg Neutrophils % 80.3 H Lymphocytes % 12.3 L Monocytes % 6.7 Eosinophils % 0.3 Basophils % 0.4 Absolute Neutrophils 9.5 H Absolute Lymphocytes 1.5 Absolute Monocytes 0.8 Absolute Eosinophils 0.0 Absolute Basophils 0.0 Sodium Cancelled 118.4 L* Potassium Cancelled 3.7 Chloride Cancelled 84 L Carbon Dioxide Cancelled 24 Anion Gap Cancelled 10 BUN Cancelled 6 L Creatinine Cancelled 0.55 Est GFR ( Amer) Cancelled > 60 Est GFR (Non-Af Amer) Cancelled > 60 Glucose Cancelled 135 H Calcium Cancelled 8.2 L Total Bilirubin Cancelled 0.9 AST Cancelled 60 H ALT Cancelled 42 Alkaline Phosphatase Cancelled 83 Total Protein Cancelled 6.6 Albumin Cancelled 4.3 05/04/18 10:32 Troponin I < 0.012 Impressions: Chest X-Ray 05/04/18 09:33 IMPRESSION: NO ACUTE RADIOGRAPHIC FINDING IN THE CHEST. Status: Imported from PACS Assessment & Plan - Diagnosis (1) Hyponatremia Is this a current diagnosis for this admission?: Yes Plan: Likely secondary to fluoxetine medication in combination with polydipsia Free water restriction NS maintenance IVF Urinalysis, urine Na and urine osm pending Daily chemistries Monitor closely for altered mental status (2) Cough Is this a current diagnosis for this admission?: Yes Plan: Dry cough No evidence of PNA Likely viral URI Symptomatic management Siria ORNELAS (3) Anxiety Is this a current diagnosis for this admission?: Yes Plan: History of anxiety Resume home dose anxiolytics (4) Depression Is this a current diagnosis for this admission?: Yes Plan: Resume home dose regimen Discontinue fluoxetine (Prozac) - Inpatient Certification Based on my medical assessment, after consideration of the patient's comorbidities, presenting symptoms, or acuity I expect that the services needed warrant INPATIENT care.: Yes I certify that my determination is in accordance with my understanding of Medicare's requirements for reasonable and necessary INPATIENT services [42 CFR 412.3e].: Yes Medical Necessity: Risk of Complication if Not Cared For in Hospital - Plan Summary Plan Summary: DISCONTINUE FLUOXETINE. FREE WATER RESTRICTION. IVF. URINE STUDIES. MONITOR FOR AMS. BMP IN AM.
--- NOTE | 2018-05-04 22:59 | EKG REPORT ---
SEVERITY:- BORDERLINE ECG - SINUS RHYTHM BORDERLINE PROLONGED QT INTERVAL : Confirmed by: Liam Levi 04-May-2018 22:58:00
[2018-05-05 06:44] LABS: HEMOGLOBIN 11.6 g/dL (12.0-15.5); MEAN CORPUSCULAR HEMOGLOBIN 29.4 pg (27.0-33.4); MEAN CORPUSCULAR HGB CONC 35.1 g/dL (32.0-36.0); MEAN CORPUSCULAR VOLUME 84 fl (80-97); PLATELET COUNT 443 10^3/uL (150-450); RED BLOOD COUNT 3.93 10^6/uL (3.72-5.28); RED CELL DISTRIBUTION WIDTH 12.9 % (11.5-14.0); WHITE BLOOD COUNT 12.8 10^3/uL (4.0-10.5)
[2018-05-05 07:21] LABS: ALANINE AMINOTRANSFERASE 47 U/L (9-52); ALBUMIN 3.9 g/dL (3.5-5.0); ALKALINE PHOSPHATASE 88 U/L (38-126); ANION GAP 14 (5-19); ASPARTATE AMINO TRANSFERASE 154 U/L (14-36); BILIRUBIN,DIRECT 0.4 mg/dL (0.0-0.4); BILIRUBIN,TOTAL 1.3 mg/dL (0.2-1.3); BLOOD UREA NITROGEN 5 mg/dL (7-20); CALCIUM 8.4 mg/dL (8.4-10.2); CARBON DIOXIDE 17 mmol/L (22-30); CHLORIDE 103 mmol/L (98-107); GLUCOSE 114 mg/dL (75-110); POTASSIUM 3.8 mmol/L (3.6-5.0); SODIUM 133.7 mmol/L (137-145); TOTAL PROTEIN 5.9 g/dL (6.3-8.2)
[2018-05-05] MEDS ORDERED: ALBUTEROL SULFATE HFA (90 MCG/PUFF) 200 PUFF/8.5 GM MDI IH PRN (09:09)
[2018-05-05] MEDS ORDERED: SUMATRIPTAN SUCCINATE 50 MG TABLET PO PRN (09:09)
[2018-05-05] MEDS ORDERED: ENOXAPARIN SODIUM INJ 30 MG/0.3 ML DISP.SYRIN SUBCUT SCH (10:00)
[2018-05-05] MEDS ORDERED: CITALOPRAM HYDROBROMIDE 20 MG TABLET PO SCH (10:00)
[2018-05-05] MEDS ORDERED: AMITRIPTYLINE HCL 25 MG TABLET PO SCH (10:00)
[2018-05-05] MEDS ORDERED: BUSPIRONE HCL 10 MG TABLET PO SCH (10:00)
[2018-05-05] MEDS ORDERED: (PENDING PHARMACY ID) (Citalopram Hydrobromide [Celexa 40 Mg Tablet] 40 MG) PO SCH (10:00)
[2018-05-05 15:40] VITALS: BP 124/58
[2018-05-05] MEDS ORDERED: TEMAZEPAM 15 MG CAPSULE PO SCH (22:00)
[2018-05-05] MEDS ORDERED: CLONAZEPAM 1 MG TABLET PO SCH (22:00)
[2018-05-05] MEDS ORDERED: HYDROXYZINE PAMOATE 50 MG CAPSULE PO SCH (22:00)
--- NOTE | 2018-05-08 12:20 | PDOC DISCHARGE SUMMARY ---
General - Admit/Disc Date/PCP Admission Date/Primary Care Provider: 05/05/18 14:04 RAUL GUILLEN, Discharge Date: 05/05/18 - Discharge Diagnosis (1) Hyponatremia Is this a current diagnosis for this admission?: Yes (2) Cough Is this a current diagnosis for this admission?: Yes (3) Anxiety Is this a current diagnosis for this admission?: Yes (4) Depression Is this a current diagnosis for this admission?: Yes - Additional Information Resuscitation Status: Full Code Home Medications: Albuterol Sulfate [Proair HFA Inhalation Aerosol 8.5 gm MDI] 2 puff IH Q4HP PRN 05/04/18 Amitriptyline HCl [Elavil 25 mg Tablet] 25 mg PO DAILY 05/04/18 Buspirone HCl [Buspar 15 mg Tablet] 15 mg PO Q12 05/04/18 Citalopram Hydrobromide [Celexa 40 mg Tablet] 40 mg PO DAILY 05/04/18 Clonazepam [Klonopin 1 mg Tablet] 1 mg PO QHS 05/04/18 Hydroxyzine Pamoate [Vistaril 50 mg Capsule] 100 mg PO QHS 05/04/18 Sumatriptan Succinate [Imitrex 50 mg Tablet] 50 mg PO PRN PRN 05/04/18 Temazepam [Restoril 15 mg Capsule] 30 mg PO QHS 05/04/18 History of Present Illness History of Present Illness: RAFAEL DAS is a 62 year old female who presented to the ED with 1 week of a dry cough. PMH includes anxiety and depression. The patient's caregiver reports that the patient consumed about 1.5 cases of water (36 x 12 oz bottles). CXR negative for PNA. Incidental finding on lab work was hyponatremia (Na 118). Of note, the patient's caregiver reported that the patient was taking fluoxetine. Upon assessment, the patient is awake and comfortable in bed. She occasionally coughs but does not produce mucous. Lungs are clear to auscultation. She is able to tell me her name and that she is at the hospital. The patient is disoriented to time and situation. PERRLA. Able to follow commands. Caregiver states that her current mental state is her baseline. Suspect that the patient's hyponatremia is secondary to fluxetine. Recent polydipsia would not cause dramatic decrease in Na (only consumed approx. 2.4L per day for 5 days). Plan to admit to hospitalist service on MED/TELE floor for hyponatremia treatment. Hospital Course Hospital Course: 62 y.o. F admitted to hospitalist service for HYPOnatremia, thought to be related to fluoxetine and polydypsia. Upon admission, her Na was 118. This is a new finding for the patient who has been to [facility] multiple times in the past and typically has a normal Na level. Throughout her hospital stay, the patient was awake, mostly oriented, slightly confused about why she was being admitted to the hospital. Her caregiver stated that her current mental status was her baseline. The calculated sodium correction rate (for normal saline IVF) was 238ml/hr. In order to slowly bring her sodium levels back to normal, the patient was placed on a free water restriction and started on NS @ 100mL/hr. The next AM, her Na was 136. The patient was urged to stay in the hospital for observation of symptoms related to osmotic demyelination syndrome. She was informed that her sodium had overcorrected and she was at risk for significant neurological changes. For reasons that are unclear to the medical staff, the patient was very adamant that she wanted to go home. Despite her risk of permanent neurological damage the patient stated that she wanted to go home. Her caregiver (POA) agreed that if the patient wanted to go home, that she should be allowed to leave. Myself and t he patient's RN explained the risks of ODS, seizures, ronnie/paraplegia, locked in syndrome, etc. but the patient and her caregiver remained firm in their desire to go home. The caregiver and the patient signed out AMA on 05/05/2018. Physical Exam Vital Signs: Temp Pulse Resp BP Pulse Ox 97.9 F 101 H 15 124/58 L 98 05/05/18 15:39 05/05/18 15:39 05/05/18 15:39 05/05/18 15:39 05/05/18 15:39 Results Laboratory Results: 05/05/18 06:14 05/05/18 06:14 05/04/18 05/05/18 10:32 06:14 Troponin I < 0.012 NT-Pro-B Natriuret Pep 1370 H Impressions: Chest X-Ray 05/04/18 09:33 IMPRESSION: NO ACUTE RADIOGRAPHIC FINDING IN THE CHEST. Qualifiers - * PATIENT BEING DISCHARGED WITH ANY OF THE FOLLOWING DIAGNOSIS: No Plan Discharge Plan: THE PATIENT AND HER SIGNED OUT AMA Time Spent: Greater than 30 Minutes
== END 2018-05-05 16:30 | disposition left against medical advice (07) | DRG 641 ==
LOC: ER 09:02 → EH 12:02 → INTOOBSV 12:02 → 4N 23:24 → OBSVTOIN 05-05 14:04
PROVIDERS: ADMIT Hospitalist; ATTEND Hospitalist
DX: E87.1 Hypo-osmolality and hyponatremia (principal); F32.9 Major depressive disorder, single episode, unspecified; R05 Cough; F41.9 Anxiety disorder, unspecified; T43.225A Adverse effect of selective serotonin reuptake inhibitors, initial encounter; R63.1 Polydipsia; K21.9 Gastro-esophageal reflux disease without esophagitis; M19.90 Unspecified osteoarthritis, unspecified site; R00.0 Tachycardia, unspecified; F42.9 Obsessive-compulsive disorder, unspecified
CPT/HCPCS: 36415; 71046; 80053; 83880; 84484; 85025; 85027; 93005; 93010; 94640; 99284; G0378; J1650; J3490; J7030; J7620

== ENCOUNTER 2018-05-06 16:21 | Emergency (ER) | payer MEDICARE ==
--- NOTE | 2018-05-06 18:36 | ER Document Report ---
ED Medical Screen (RME) - General Chief Complaint: Altered Mental Status Stated Complaint: ABNORMAL LABS Time Seen by Provider: 05/06/18 18:16 Primary Care Provider: RAUL GUILLEN DO [Primary Care Provider] - Follow up as needed Mode of Arrival: Wheelchair Information source: Relative Notes: 62-year-old female presents emergency department requesting blood work, urine, MRI to be done to evaluate for her hyponatremia. Patient was seen in the emergency department yesterday and admitted to the hospitalist. Patient's caregiver reports that the patient has been drinking an excessive amount of water. Sodium was 118. Patient also taking fluoxetine. Patient left AGAINST MEDICAL ADVICE. She followed up with her primary care physician today, Dr. Guillen. Patient was unable to provide a urine sample outpatient and it was recommended she go to the ED to have the labs and imaging Dr. Guillen ordered done. Patient is AOx4. No complaints at this time. Caregiver says that her mental status will fluctuate. This morning she was confused. Acting like normal self now. I have greeted and performed a rapid initial assessment of this patient. A comprehensive ED assessment and evaluation of the patient, analysis of test results and completion of the medical decision making process will be conducted by additional ED providers. PHYSICAL EXAMINATION: GENERAL: Well-appearing, well-nourished and in no acute distress. HEAD: Atraumatic, normocephalic. EYES: Pupils equal round extraocular movements intact, conjunctiva are normal. ENT: Nares patent NECK: Normal range of motion LUNGS: No respiratory distress Musculoskeletal: Normal range of motion TRAVEL OUTSIDE OF THE [place] IN LAST 30 DAYS: No - Related Data Allergies/Adverse Reactions: Coconut * [Coconut] Allergy (Mild, Verified 05/04/18 11:56) Rash Past Medical History - Social History Frequency of alcohol use: None Drug Abuse: None - Past Medical History Cardiac Medical History: Pulmonary Medical History: Neurological Medical History: Reports: Hx Migraine Renal/ Medical History: Reports: Hx Ectopic . Denies: Hx Peritoneal Dialysis GI Medical History: Reports: Hx Gastroesophageal Reflux Disease Musculoskeltal Medical History: Reports Hx Arthritis, Reports Hx Musculoskeletal Deformity, Reports Hx Musculoskeletal Trauma Psychiatric Medical History: Reports: Hx Anxiety, Hx Depression, Hx Obsessive Compulsive Disorder Traumatic Medical History: Reports: Hx Spine Fracture Infectious Medical History: Past Surgical History: Reports: Hx Cardiac Surgery - ablation, Hx Cholecystectomy, Hx Orthopedic Surgery - hip, femur, knee, Hx Tubal Ligation - Immunizations Immunizations up to date: Yes Hx Diphtheria, Pertussis, Tetanus Vaccination: Yes Physical Exam - Vital signs Vitals: Temp Pulse Resp BP Pulse Ox 98.0 F 99 16 152/81 H 97 05/06/18 16:50 05/06/18 16:50 05/06/18 16:50 05/06/18 16:50 05/06/18 16:50 Course - Vital Signs Vital signs: Temp Pulse Resp BP Pulse Ox 98.0 F 99 16 152/81 H 97 05/06/18 16:50 05/06/18 16:50 05/06/18 16:50 05/06/18 16:50 05/06/18 16:50 Doctor's Discharge - Discharge Referrals: RAUL GUILLEN DO [Primary Care Provider] - Follow up as needed
[2018-05-06 19:30] LABS: ABSOLUTE BASOPHILS # (AUTO) 0.1 10^3/uL (0.0-0.2); ABSOLUTE EOSINOPHILS # (AUTO) 0.1 10^3/uL (0.0-0.6); ABSOLUTE LYMPHOCYTES (AUTO) 2.7 10^3/uL (0.5-4.7); ABSOLUTE MONOCYTES (AUTO) 1.5 10^3/uL (0.1-1.4); ABSOLUTE NEUT (AUTO) 11.6 10^3/uL (1.7-8.2); BASOPHILS % (AUTO) 0.6 % (0-2); EOSINOPHILS % (AUTO) 0.6 % (0-6); HEMATOCRIT 34.3 % (36.0-47.0); HEMOGLOBIN 11.6 g/dL (12.0-15.5); LYMPHOCYTES % (AUTO) 16.8 % (13-45); MEAN CORPUSCULAR HEMOGLOBIN 29.1 pg (27.0-33.4); MEAN CORPUSCULAR VOLUME 86 fl (80-97); MONOCYTES % (AUTO) 9.4 % (3-13); PLATELET COUNT 532 10^3/uL (150-450); RED CELL DISTRIBUTION WIDTH 13.4 % (11.5-14.0); SEGMENTED NEUTROPHILS % (AUTO) 72.6 % (42-78); TOTAL CELLS COUNTED % (AUTO) 100 %
[2018-05-06 19:50] LABS: ALANINE AMINOTRANSFERASE 60 U/L (9-52); ALBUMIN 4.2 g/dL (3.5-5.0); ALKALINE PHOSPHATASE 83 U/L (38-126); ANION GAP 10 (5-19); ASPARTATE AMINO TRANSFERASE 117 U/L (14-36); BILIRUBIN,DIRECT 0.3 mg/dL (0.0-0.4); BILIRUBIN,TOTAL 0.5 mg/dL (0.2-1.3); BLOOD UREA NITROGEN 13 mg/dL (7-20); CALCIUM 8.9 mg/dL (8.4-10.2); CARBON DIOXIDE 24 mmol/L (22-30); CHLORIDE 103 mmol/L (98-107); GLUCOSE 148 mg/dL (75-110); POTASSIUM 3.6 mmol/L (3.6-5.0); SODIUM 136.9 mmol/L (137-145); TOTAL PROTEIN 6.5 g/dL (6.3-8.2)
[2018-05-07 00:57] LABS: APPEARANCE,URINE SLIGHTLY-CLOUDY; BILIRUBIN,URINE NEGATIVE (NEGATIVE); COLOR,URINE AMBER; GLUCOSE, URINE NEGATIVE (NEGATIVE); KETONES,URINE 20 mg/dL (NEGATIVE); LEUKOCYTE ESTERASE,URINE NEGATIVE (NEGATIVE); NITRITE,URINE NEGATIVE (NEGATIVE); PROTEIN,URINE 30 mg/dL (NEGATIVE); URINE SPECIFIC GRAVITY 1.024
--- NOTE | 2018-05-07 01:06 | ER Document Report ---
ED General - General Chief Complaint: Altered Mental Status Stated Complaint: ABNORMAL LABS Time Seen by Provider: 05/06/18 18:16 Primary Care Provider: RAUL GUILLEN DO [Primary Care Provider] - Follow up as needed Mode of Arrival: Wheelchair Notes: Patient is a 62-year-old female presents emergency department requesting blood work, urine, MRI to be done to evaluate for her hyponatremia. Patient was seen in the emergency department yesterday and admitted to the hospitalist. Love zambrano's caregiver reports that the patient has been drinking an excessive amount of water. Sodium was 118. Patient also taking fluoxetine. Patient left AGAINST MEDICAL ADVICE. She followed up with her primary care physician today, Dr. Guillen. Patient was unable to provide a urine sample outpatient and it was recommended she go to the ED to have the labs and imaging Dr. Guillen ordered done. Patient is AOx4. No complaints at this time. Caregiver says that her mental status will fluctuate. This morning she was confused. Acting like normal self now. Caregiver notes that nothing seems necessarily improve or worsen the patient's orientation or mental status. No changes in medications. Patient currently adamantly denies chest pain, shortness of breath, headache, neck pain, cough or shortness of breath. She denies any weakness or numbness. States she feels completely fine would like to go home. TRAVEL OUTSIDE OF THE [place] IN LAST 30 DAYS: No - Related Data Allergies/Adverse Reactions: Coconut * [Coconut] Allergy (Mild, Verified 05/04/18 11:56) Rash Past Medical History - General Information source: Relative - Social History Smoking Status: Never Smoker Frequency of alcohol use: None Drug Abuse: None Lives with: Friend Family History: Reviewed & Not Pertinent, Other - adopted does not know family history Patient has suicidal ideation: No Patient has homicidal ideation: No - Past Medical History Cardiac Medical History: Pulmonary Medical History: Neurological Medical History: Reports: Hx Migraine Renal/ Medical History: Reports: Hx Ectopic . Denies: Hx Peritoneal Dialysis GI Medical History: Reports: Hx Gastroesophageal Reflux Disease Musculoskeletal Medical History: Reports Hx Arthritis, Reports Hx Musculoskeletal Deformity, Reports Hx Musculoskeletal Trauma Psychiatric Medical History: Reports: Hx Anxiety, Hx Depression, Hx Obsessive Compulsive Disorder Traumatic Medical History: Reports: Hx Spine Fracture Infectious Medical History: Past Surgical History: Reports: Hx Cardiac Surgery - ablation, Hx Cholecystectomy, Hx Orthopedic Surgery - hip, femur, knee, Hx Tubal Ligation - Immunizations Immunizations up to date: Yes Hx Diphtheria, Pertussis, Tetanus Vaccination: Yes Review of Systems - Review of Systems Notes: Constitutional: Negative for fever. HENT: Negative for sore throat. Eyes: Negative for visual changes. Cardiovascular: Negative for chest pain. Respiratory: Negative for shortness of breath. Gastrointestinal: Negative for abdominal pain, vomiting or diarrhea. Genitourinary: Negative for dysuria. Musculoskeletal: Negative for back pain. Skin: Negative for rash. Neurological: Negative for headaches, weakness or numbness. 10 point ROS negative except as marked above and in HPI. Physical Exam - Vital signs Vitals: Temp Pulse Resp BP Pulse Ox 98.0 F 99 16 152/81 H 97 05/06/18 16:50 05/06/18 16:50 05/06/18 16:50 05/06/18 16:50 05/06/18 16:50 Interpretation: Hypertensive Notes: PHYSICAL EXAMINATION: GENERAL: Appears somewhat older than stated age but in no acute distress HEAD: Atraumatic, normocephalic. EYES: Pupils equal round and reactive to light, extraocular movements intact, sclera anicteric, conjunctiva are normal. ENT: nares patent, oropharynx clear without exudates. Moist mucous membranes. NECK: Normal range of motion, supple without lymphadenopathy LUNGS: Breath sounds clear to auscultation bilaterally and equal. No wheezes rales or rhonchi. HEART: Regular rate and rhythm without murmurs ABDOMEN: Soft, nontender, normoactive bowel sounds. No guarding, no rebound. No masses appreciated. EXTREMITIES: Normal range of motion, no pitting or edema. No cyanosis. NEUROLOGICAL: Face symmetric. Tongue protrudes midline. Extraocular motions intact. Pupils are 2 mm and equally reactive. Normal speech, normal gait. 5 out of 5 strength in both the distal and proximal upper and lower extremities bilaterally. Sensation is grossly intact throughout. Finger to nose testing normal. Pronator drift normal. PSYCH: Normal mood, normal affect. Alert and oriented x4. SKIN: Warm, Dry, normal turgor, no rashes or lesions noted. Course - Re-evaluation Re-evalutation: 05/07/18 01:04 Patient presents with request for repeat blood work and concern of intermittent altered mental status after having hyponatremia discovered several days ago. Patient's labs today are notable only for nonspecific leukocytosis, otherwise completely unremarkable. Patient denies patient's vitals are within normal lives at the time of my assessment with a heart rate of 94, blood pressure 120/56, saturating 98% on room air. She has no focal localizing infectious symptoms. Urinalysis clear. She has no respiratory symptoms to suggest pneumonia. Hyponatremia has completely resolved. I do not see an indication for further workup or hospitalization at this time. At this time will discharge with return precautions and follow-up recommendations. Verbal discharge instructions given a the bedside and opportunity for questions given. Medication warnings reviewed. Patient is in agreement with this plan and has verbalized understanding of return precautions and the need for primary care follow-up in the next 24-72 hours. - Vital Signs Vital signs: Temp Pulse Resp BP Pulse Ox 99.0 F 99 17 119/49 L 96 05/07/18 00:14 05/06/18 16:50 05/07/18 01:55 05/07/18 01:55 05/07/18 01:55 - Laboratory Result Diagrams: 05/06/18 19:12 05/06/18 19:12 Laboratory results interpreted by me: 05/06/18 05/06/18 05/07/18 19:12 19:12 00:30 WBC 16.0 H Hgb 11.6 L Hct 34.3 L Plt Count 532 H Absolute Neutrophils 11.6 H Absolute Monocytes 1.5 H Sodium 136.9 L Glucose 148 H AST 117 H ALT 60 H Urine Protein 30 H Urine Ketones 20 H Urine Urobilinogen 2.0 H Urine Ascorbic Acid 20 H Discharge - Discharge Clinical Impression: Hyponatremia Altered mental status Qualifiers: Altered mental status type: unspecified Qualified Code(s): R41.82 - Altered mental status, unspecified Condition: Good Disposition: HOME, SELF-CARE Additional Instructions: Your sodium levels have normalized. Please follow-up with your primary care doctor. Return for any new or worsening symptoms of any kind. Referrals: RAUL GUILLEN, [Primary Care Provider] - Follow up as needed
[2018-05-07 02:03] VITALS: BP 119/49
== END 2018-05-07 02:02 | disposition home or self-care (01) ==
LOC: ER 16:21
DX: E87.1 Hypo-osmolality and hyponatremia (principal); R41.0 Disorientation, unspecified; D72.829 Elevated white blood cell count, unspecified; F32.9 Major depressive disorder, single episode, unspecified; Z79.899 Other long term (current) drug therapy; Z91.018 Allergy to other foods
CPT/HCPCS: 36415; 51701; 80053; 81001; 85025; 87086; 99284

== ENCOUNTER → 2018-05-08 | Emergency (ER) | payer MEDICARE ==
[~2018-05-08] MED LIST: CEFTRIAXONE 1 GM/D5W RTU 1 GM/50 ML RTUPB IV ONE; LORAZEPAM INJ 2 MG/1 ML VIAL IV ONE; NORMAL SALINE 1000 ML 1,000 ML IV ONE; POTASSI CL 20 MEQ/50 ML RIDER 20 MEQ/50 ML RTUPB IV ONE; RINGERS SOLUTION,LACTATED 1,000 ML IV ONE; ZIPRASIDONE MESYLATE INJ/PF 20 MG SDV IM ONE
--- NOTE | 2018-05-08 10:41 | ER Document Report ---
ED General - General Stated Complaint: PSYCH EVAL Time Seen by Provider: 05/08/18 10:40 Primary Care Provider: RAUL GUILLEN DO [Primary Care Provider] - Follow up as needed Notes: Patient is a 62-year-old female with history of psychiatric disorders that presents to the emergency department for chief complaint of insomnia, agitation, and psychosis. History provided by EMS. Patient reportedly was up all night, and talking nonsensically, and was very agitated, her called EMS as a result. She apparently has not been taking her prescribed medications for mood stabilization, per records she is on citalopram, and BuSpar. Per EMS the patient was very aggressive, was yelling racial slurs to the team, was trying to hit the EMS team, and as a result was given 400 mg of IM ketamine, which did help the patient, she was maintained on end-tidal CO2, and has been spontaneously breathing throughout, this did calm her down, but now she is becoming agitated again and moving around in the bed. Patient at this time is unable to provide any significant history. No other history obtainable at this time. The patient was recently seen in the emergency department, and was admitted to the hospital for severe hyponatremia, which had subsequently resolved, she was in the ED yesterday, and blood work that appeared to be normal , at that time and was discharged home. Past Medical History: Arthritis, depression, anxiety, GERD, hypertension, hypothyroidism Past Surgical History: Cardiac ablation, multiple orthopedic surgeries, hip surgery, cholecystectomy Social History: Former smoker, currently lives at home with her . Family History: Reviewed and noncontributory for presenting illness Allergies: Reviewed, see documented allergy list. REVIEW OF SYSTEMS: Complete review of systems is not obtainable secondary to the patient being sedated at this time. PHYSICAL EXAMINATION: Vital signs reviewed, nursing noted reviewed. GENERAL: Elderly female, opening eyes spontaneously, but is sedated but still agitated at times HEAD: Atraumatic, normocephalic. EYES: Eyes appear normal, extraocular movements intact, sclera anicteric, conjunctiva are normal. PERRLA ENT: nares patent, oropharynx clear without exudates. Moist mucous membranes. NECK: Normal range of motion, supple without lymphadenopathy LUNGS: Breath sounds clear to auscultation bilaterally and equal. No wheezes rales or rhonchi. HEART: Heart rate tachycardic, regular rhythm, no audible murmur ABDOMEN: Soft, not apparently tender, normoactive bowel sounds. No rebound, guarding, or rigidity. No masses appreciated. EXTREMITIES: Nontender, good range of motion, no pitting or edema. NEUROLOGICAL: GCS: 13, for verbal response, which is nonsensical speech, moving all extremities spontaneously, and purposely, opening eyes spontaneously. No focal neurological deficits. Moves all extremities spontaneously Motor and sensory grossly intact on exam. PSYCH: Patient is somnolent at this time, but arousable. SKIN: Warm, Dry, normal turgor, no rashes or lesions noted on exposed skin TRAVEL OUTSIDE OF THE [place] IN LAST 30 DAYS: No - Related Data Allergies/Adverse Reactions: Coconut * [Coconut] Allergy (Mild, Verified 05/04/18 11:56) Rash Past Medical History - Social History Smoking Status: Former Smoker Family History: Reviewed & Not Pertinent, Other - adopted does not know family history - Past Medical History Cardiac Medical History: Pulmonary Medical History: Neurological Medical History: Reports: Hx Migraine Renal/ Medical History: Reports: Hx Ectopic . Denies: Hx Peritoneal Dialysis GI Medical History: Reports: Hx Gastroesophageal Reflux Disease Musculoskeletal Medical History: Reports Hx Arthritis, Reports Hx Musculoskeletal Deformity, Reports Hx Musculoskeletal Trauma Psychiatric Medical History: Reports: Hx Anxiety, Hx Depression, Hx Obsessive Compulsive Disorder Traumatic Medical History: Reports: Hx Spine Fracture Infectious Medical History: Past Surgical History: Reports: Hx Cardiac Surgery - ablation, Hx Cholecystectomy, Hx Orthopedic Surgery - hip, femur, knee, Hx Tubal Ligation - Immunizations Immunizations up to date: Yes Hx Diphtheria, Pertussis, Tetanus Vaccination: Yes Physical Exam - Vital signs Vitals: Pulse Ox 97 05/08/18 10:40 Course - Re-evaluation Re-evalutation: Patient seen and examined vital signs reviewed. Laboratory data and imaging were ordered as appropriate for the patient's presenting symptoms and complaint, with consideration of any critical or life threatening conditions that may be associated with their obtained history and exam as noted above. Patient was treated with IV fluids, given potassium replacement for her potassium of 3.3. Did have a nonspecific leukocytosis, will attempt to obtain catheterized urine, patient given a dose of 1 mg of Ativan to try to help calm her down to have this procedure. Tox screen was otherwise negative in the blood, for salicylates, acetaminophen or alcohol. Patient had no prior history based on prior charts, of drug use or intoxication. The patient was re-evaluated and was improved from a GCS standpoint, her GCS is 15 currently, patient is very irritable, any attempt to have the patient follow commands, she yells "NO!" And then starts to ramble nonsensically, and then will calm herself down, and then rest, without trying to get out of the bed. Evaluation was most consistent with acute encephalopathy, hypokalemia, leukocytosis. Results were discussed with the patient at this point after careful consideration I feel that that patient should be transferred to [facility] due to acute encephalopathy, with unclear etiology at this time I feel the patient needs an MRI under sedation which she cannot provide at this time a possible LP under sedation as well. This was discussed with the patient, however she is still encephalopathic and unable to fully comprehend, but I feel it is in the best interest of this patient, to be fully evaluated from a neurological standpoint, and do not currently have neurology available for consultation in the hospital. *Note is created using voice recognition software and may contain spelling, synt ax or grammatical errors. Laboratory 05/08/18 05/08/18 05/08/18 10:53 10:53 10:53 WBC 15.4 H RBC 4.16 Hgb 12.0 Hct 35.7 L MCV 86 MCH 28.9 MCHC 33.6 RDW 13.7 Plt Count 582 H Seg Neutrophils % 77.0 Lymphocytes % 12.9 L Monocytes % 8.6 Eosinophils % 0.5 Basophils % 1.0 Absolute Neutrophils 11.9 H Absolute Lymphocytes 2.0 Absolute Monocytes 1.3 Absolute Eosinophils 0.1 Absolute Basophils 0.1 Sodium 139.9 Potassium 3.3 L Chloride 106 Carbon Dioxide 25 Anion Gap 9 BUN 17 Creatinine 0.84 Est GFR ( Amer) > 60 Est GFR (Non-Af Amer) > 60 Glucose 122 H Calcium 9.0 Total Bilirubin 0.7 Direct Bilirubin 0.5 H Neonat Total Bilirubin Not Reportable Neonat Direct Bilirubin Not Reportable Neonat Indirect Bili Not Reportable AST 99 H ALT 61 H Alkaline Phosphatase 95 Troponin I Total Protein 7.2 Albumin 4.5 TSH 2.49 Free T4 2.30 H Salicylates < 1.0 L Acetaminophen < 10 L Serum Alcohol < 10 05/08/18 10:53 WBC RBC Hgb Hct MCV MCH MCHC RDW Plt Count Seg Neutrophils % Lymphocytes % Monocytes % Eosinophils % Basophils % Absolute Neutrophils Absolute Lymphocytes Absolute Monocytes Absolute Eosinophils Absolute Basophils Sodium Potassium Chloride Carbon Dioxide Anion Gap BUN Creatinine Est GFR ( Amer) Est GFR (Non-Af Amer) Glucose Calcium Total Bilirubin Direct Bilirubin Neonat Total Bilirubin Neonat Direct Bilirubin Neonat Indirect Bili AST ALT Alkaline Phosphatase Troponin I < 0.012 Total Protein Albumin TSH Free T4 Salicylates Acetaminophen Serum Alcohol Head CT 05/08/18 11:01 IMPRESSION: 1. Allowing for right maxillary sinus disease, no acute intracranial abnormality. EVIDENCE OF ACUTE STROKE: NO. Chest X-Ray 05/08/18 12:10 IMPRESSION: NO ACUTE DISEASE. 05/08/18 15:50 I was able to speak with the patient's daughter who came to bedside, she had not seen her in a long time is been about 7 years but they have been texting back and forth up until about a week ago, and seemingly she was having normal conversations with her, when she came in to see her today, she stated that she is never seen her mother like this before, she states she is had issues with mental illness in the past, but is never been this agitated, and the patient seemed to barely recognize her daughter, which is an acute change according to the patient's daughter and she was very upset to see her mother like this. Patient's urine drug tox was positive for PCP, which is most likely secondary to the patient's ketamine dosing she received by EMS prior to ED arrival, no history of drug use according to the patient's daughter, her UA was positive however and she was given a dose of IV Rocephin 1 g. Urine culture sent. - Vital Signs Vital signs: Temp Pulse Resp BP Pulse Ox 19 146/77 H 95 05/08/18 15:01 05/08/18 15:01 05/08/18 14:30 - Laboratory Result Diagrams: 05/08/18 10:53 05/08/18 10:53 Laboratory results interpreted by me: 05/08/18 05/08/18 05/08/18 10:53 10:53 10:53 WBC 15.4 H Hct 35.7 L Plt Count 582 H Lymphocytes % 12.9 L Absolute Neutrophils 11.9 H Potassium 3.3 L Glucose 122 H Direct Bilirubin 0.5 H AST 99 H ALT 61 H Free T4 2.30 H Urine Protein Urine Ketones Urine Blood Urine Nitrite Urine Bilirubin Urine Urobilinogen Ur Leukocyte Esterase Salicylates < 1.0 L Acetaminophen < 10 L 05/08/18 14:55 WBC Hct Plt Count Lymphocytes % Absolute Neutrophils Potassium Glucose Direct Bilirubin AST ALT Free T4 Urine Protein 30 H Urine Ketones 80 H Urine Blood MODERATE H Urine Nitrite POSITIVE H Urine Bilirubin SMALL H Urine Urobilinogen 2.0 H Ur Leukocyte Esterase LARGE H Salicylates Acetaminophen - EKG Interpretation by Me Additional EKG results interpreted by me: EKG demonstrates sinus tachycardia with a ventricular rate of 103 bpm, normal a xis, QTC 456 ms, no evidence of acute ischemia in this EKG, compared to prior EKG from 05/04/2018, without significant change. Discharge - Discharge Clinical Impression: Acute encephalopathy, Hypokalemia, Agitation Leukocytosis Qualifiers: Leukocytosis type: unspecified Qualified Code(s): D72.829 - Elevated white blood cell count, unspecified Condition: Stable Disposition: [facility] Referrals: RAUL GUILLEN DO [Primary Care Provider] - Follow up as needed
--- NOTE | 2018-05-08 11:20 | PSYCHOLOGICAL NOTE ---
Psych Note - Psych Note Date seen by psych provider: 05/08/18 Psych Note: patient to room 15 in ED via EMS c/o aggression, hallucinations. pt has not been taking her mental health medications for unknown amount of time. EMS states patient was throwing items, attempting to hit people. pt was given Ketamine 400mg IM by EMS. Currently seen at [facility] by by Bill Marquez. She is prescribed Vistaril 100 mg nightly and Celexa 20 mg daily.
--- NOTE | 2018-05-08 11:40 | RADIOLOGY REPORT (SQ) ---
EXAM DESCRIPTION: CT HEAD WITHOUT COMPLETED DATE/TIME: 05/08/2018 11:28 am REASON FOR STUDY: agitation, confusion, ams COMPARISON: 2011. TECHNIQUE: Axial images acquired through the brain without intravenous contrast. Images reviewed wi th bone, brain and subdural windows. Additional sagittal and coronal reconstructions were generated. Images stored on PACS. All CT scanners at this facility use dose modulation, iterative reconstruction, and/or weight based d osing when appropriate to reduce radiation dose to as low as reasonably achievable (ALARA). [facility]: Dose Right [facility]: CareDose [facility]: Dose Right [facility]: Teradose 4D [facility]: [employer] RADIATION DOSE: CT Rad equipment meets quality standard of care and radiation dose reduction techniq ues were employed. CTDIvol: 55.2 mGy. DLP: 1056 mGy-cm. mGy. LIMITATIONS: None. FINDINGS: VENTRICLES: Normal size and contour. CEREBRUM: No masses. No hemorrhage. No midline shift. No evidence for acute infarction. Normal gra y/white matter differentiation. No areas of low density in the white matter. CEREBELLUM: No masses. No hemorrhage. No alteration of density. No evidence for acute infarction. EXTRAAXIAL SPACES: No fluid collections. No masses. ORBITS AND GLOBE: No intra- or extraconal masses. Normal contour of globe without masses. CALVARIUM: No fracture. PARANASAL SINUSES: Mild fluid in the dependent right maxillary sinus. SOFT TISSUES: No mass or hematoma. OTHER: No other significant finding. IMPRESSION: 1. Allowing for right maxillary sinus disease, no acute intracranial abnormality. EVIDENCE OF ACUTE STROKE: NO. COMMENT: Quality ID # [id number]: Final reports with documentation of one or more dose reduction techniques (e.g., Automated exposure control, adjustment of the mA and/or kV according to patient size, use of iterative reconstruction technique) TECHNICAL DOCUMENTATION: JOB ID: [id number] [employer]- All Rights Reserved Reading location - IP/workstation name: [email or web address]
[2018-05-08 11:45] LABS: FREE T4 (FREE THYROXINE) 2.3 ng/dL (0.78-2.19)
[2018-05-08 11:59] LABS: THYROID STIMULATING HORMONE 2.49 uIU/mL (0.47-4.68)
[2018-05-08 12:00] LABS: ABSOLUTE BASOPHILS # (AUTO) 0.1 10^3/uL (0.0-0.2); ABSOLUTE EOSINOPHILS # (AUTO) 0.1 10^3/uL (0.0-0.6); ABSOLUTE MONOCYTES (AUTO) 1.3 10^3/uL (0.1-1.4); ABSOLUTE NEUT (AUTO) 11.9 10^3/uL (1.7-8.2); EOSINOPHILS % (AUTO) 0.5 % (0-6); HEMATOCRIT 35.7 % (36.0-47.0); LYMPHOCYTES % (AUTO) 12.9 % (13-45); MEAN CORPUSCULAR HEMOGLOBIN 28.9 pg (27.0-33.4); MEAN CORPUSCULAR HGB CONC 33.6 g/dL (32.0-36.0); MEAN CORPUSCULAR VOLUME 86 fl (80-97); MONOCYTES % (AUTO) 8.6 % (3-13); PLATELET COUNT 582 10^3/uL (150-450); RED BLOOD COUNT 4.16 10^6/uL (3.72-5.28); RED CELL DISTRIBUTION WIDTH 13.7 % (11.5-14.0); TOTAL CELLS COUNTED % (AUTO) 100 %; WHITE BLOOD COUNT 15.4 10^3/uL (4.0-10.5)
[2018-05-08 12:10] LABS: ALANINE AMINOTRANSFERASE 61 U/L (9-52); ALBUMIN 4.5 g/dL (3.5-5.0); ALKALINE PHOSPHATASE 95 U/L (38-126); ANION GAP 9 (5-19); ASPARTATE AMINO TRANSFERASE 99 U/L (14-36); BILIRUBIN,DIRECT 0.5 mg/dL (0.0-0.4); BILIRUBIN,TOTAL 0.7 mg/dL (0.2-1.3); BLOOD UREA NITROGEN 17 mg/dL (7-20); CARBON DIOXIDE 25 mmol/L (22-30); CHLORIDE 106 mmol/L (98-107); GLUCOSE 122 mg/dL (75-110); POTASSIUM 3.3 mmol/L (3.6-5.0); SODIUM 139.9 mmol/L (137-145); TOTAL PROTEIN 7.2 g/dL (6.3-8.2)
[2018-05-08 12:11] LABS: ACETAMINOPHEN < 10 ug/mL (10-30); ALCOHOL < 10 mg/dL (NONE DETECTED); SALICYLATE < 1.0 mg/dL (2.0-20.0)
--- NOTE | 2018-05-08 12:57 | RADIOLOGY REPORT (SQ) ---
EXAM DESCRIPTION: CHEST SINGLE VIEW COMPLETED DATE/TIME: 05/08/2018 12:36 pm REASON FOR STUDY: tachycardia, altered mental status COMPARISON: 05/04/2018. EXAM PARAMETERS: NUMBER OF VIEWS: One view. TECHNIQUE: Single frontal radiographic view of the chest acquired. RADIATION DOSE: NA LIMITATIONS: None. FINDINGS: LUNGS AND PLEURA: No acute infiltrates or effusions. MEDIASTINUM AND HILAR STRUCTURES: No masses. Contour normal. HEART AND VASCULAR STRUCTURES: The heart is normal with normal pulmonary vasculature. BONES: No acute findings. HARDWARE: Status post cervical fusion. OTHER: Chest leads in place. IMPRESSION: NO ACUTE DISEASE. TECHNICAL DOCUMENTATION: JOB ID: [id number]- All Rights Reserved Reading location - IP/workstation name: [email or web address]
[2018-05-08 15:26] LABS: APPEARANCE,URINE SLIGHTLY-CLOUDY; BILIRUBIN,URINE SMALL (NEGATIVE); COLOR,URINE YELLOW; GLUCOSE, URINE NEGATIVE (NEGATIVE); KETONES,URINE 80 mg/dL (NEGATIVE); LEUKOCYTE ESTERASE,URINE LARGE (NEGATIVE); NITRITE,URINE POSITIVE (NEGATIVE); PROTEIN,URINE 30 mg/dL (NEGATIVE)
[2018-05-08 15:39] LABS: URINE AMPHETAMINES SCREEN NEGATIVE; URINE BARBITURATES SCREEN NEGATIVE; URINE BENZODIAZEPINES SCREEN NEGATIVE; URINE COCAINE SCREEN NEGATIVE; URINE MARIJUANA (THC) SCREEN NEGATIVE; URINE METHADONE SCREEN NEGATIVE; URINE PHENCYCLIDINE SCREEN UNCONFIRMED POSITIVE
--- NOTE | 2018-05-09 00:07 | EKG REPORT ---
SEVERITY:- ABNORMAL ECG - SINUS TACHYCARDIA : Confirmed by: Liam Levi 09-May-2018 00:06:00
[2018-05-09 01:36] VITALS: BP 143/60
== END | disposition short-term general hospital (02) ==
LOC: ER 10:34
DX: G93.40 Encephalopathy, unspecified (principal); E87.6 Hypokalemia; R45.1 Restlessness and agitation; D72.829 Elevated white blood cell count, unspecified; R00.0 Tachycardia, unspecified; G47.00 Insomnia, unspecified; J32.0 Chronic maxillary sinusitis; F32.9 Major depressive disorder, single episode, unspecified; F41.9 Anxiety disorder, unspecified; Z79.899 Other long term (current) drug therapy; Z87.891 Personal history of nicotine dependence; Z91.018 Allergy to other foods
CPT/HCPCS: 93005; 99285; 96375; 96365; 96366; 96367; 36415; 87086; 84439; 80307 ×4; 84443; 85025; 87088; 80053; 81001; 84484; 87186; 71045; 70450; 93010; J2060; J3480; J7120; J0696; J3486